=== PATIENT | female | born 1955 | race Caucasian/White ===

== ENCOUNTER 2020-05-16 12:02 | Inpatient (IN) | payer MEDICARE, BC ==
[2020-05-16] MEDS ORDERED: KETOROLAC 15 MG/ML 1 ML VIAL IVP STA (12:24)
[2020-05-16] MEDS ORDERED: SODIUM CHLORIDE 0.9% 1,000 ML IV STA (12:24)
--- NOTE | 2020-05-16 12:32 | ED ---
General Adult HPI - General Chief complaint: Urogenital Stated complaint: Fever,Blood in Urine Time Seen by Provider: 05/16/20 12:17 Source: patient, RN notes reviewed, old records reviewed Mode of arrival: ambulatory Limitations: no limitations - History of Present Illness Initial comments: 64-year-old female presenting for evaluation of fever, chills, dysuria or urinary frequency and left flank pain. Patient's symptoms have been going for the past 2 days. She is otherwise quite healthy. She denies vomiting but has had a very poor appetite. She's had fever measuring up to 102. She's had urinary incontinence and urinary frequency. And severe left flank pain. - Related Data Allergies Allergy/AdvReac Type Severity Reaction Status Date / Time bee venom protein (honey bee) Allergy Rash/Hives Verified 05/16/20 12:14 cephalexin [From Keflex] Allergy Anaphylaxis Verified 05/16/20 12:14 Penicillins Allergy Rash/Hives Verified 05/16/20 12:14 Sulfa (Sulfonamide Allergy Rash/Hives Verified 05/16/20 12:14 Antibiotics) Review of Systems ROS Statement: Those systems with pertinent positive or pertinent negative responses have been documented in the HPI. ROS Other: All systems not noted in ROS Statement are negative. Past Medical History Past Medical History: Asthma, GERD/Reflux Additional Past Medical History / Comment(s): arthrits, ibs, sepis, rds, gravees, scohisis neuropthy, History of Any Multi-Drug Resistant Organisms: None Reported Past Surgical History: Section, Orthopedic Surgery, Tubal Ligation Additional Past Surgical History / Comment(s): tea Past Psychological History: No Psychological Hx Reported Smoking Status: Former smoker Past Alcohol Use History: None Reported Past Drug Use History: None Reported General Exam Limitations: no limitations General appearance: alert, in no apparent distress Head exam: Present: atraumatic, normocephalic Eye exam: Present: normal appearance. Absent: PERRL, EOMI ENT exam: Present: normal exam Neck exam: Present: normal inspection. Absent: tenderness, meningismus Respiratory exam: Present: normal lung sounds bilaterally. Absent: respiratory distress, wheezes Cardiovascular Exam: Present: regular rate, normal rhythm GI/Abdominal exam: Present: soft. Absent: distended, tenderness Extremities exam: Present: normal inspection, normal capillary refill. Absent: pedal edema Back exam: Present: CVA tenderness (L) Neurological exam: Present: alert, oriented X3, CN II-XII intact. Absent: motor sensory deficit Psychiatric exam: Present: normal affect, normal mood Skin exam: Present: warm, dry, intact. Absent: cyanosis, diaphoretic Course Vital Signs 05/16/20 12:08 Temperature 98.8 F Pulse Rate 92 Respiratory 20 Rate Blood Pressure 182/108 O2 Sat by Pulse 98 Oximetry Medical Decision Making - Medical Decision Making 64-year-old female with flank pain, fever, dysuria. Patient does have CVA tenderness. Workup was initiated, consistent with a pyelonephritis. She has significantly infected urine, culture pending of both urine and blood patches white blood cell count of 20,000. CT showing inflammation in the left kidney consistent with exam. Patient will be admitted for IV antibiotics. She does have significant antibiotic ALLERGIES including anaphylaxis. She has been started on Levaquin awaiting culture results. Case is discussed with Dr. Camara who will admit the patient - Lab Data Result diagrams: 05/16/20 12:31 05/16/20 12:31 Lab Results 05/16/20 05/16/20 05/16/20 Range/Units 12:31 12:31 12:31 WBC 19.1 H (3.8-10.6) k/uL RBC 4.93 (3.80-5.40) m/uL Hgb 15.4 (11.4-16.0) gm/dL Hct 46.3 H (34.0-46.0) % MCV 93.9 (80.0-100.0) fL MCH 31.2 (25.0-35.0) pg MCHC 33.2 (31.0-37.0) g/dL RDW 13.2 (11.5-15.5) % Plt Count 277 (150-450) k/uL Neutrophils % 79 % Lymphocytes % 15 % Monocytes % 4 % Eosinophils % 1 % Basophils % 1 % Neutrophils # 15.0 H (1.3-7.7) k/uL Lymphocytes # 2.8 (1.0-4.8) k/uL Monocytes # 0.8 (0-1.0) k/uL Eosinophils # 0.1 (0-0.7) k/uL Basophils # 0.1 (0-0.2) k/uL Sodium 137 (137-145) mmol/L Potassium 4.1 (3.5-5.1) mmol/L Chloride 103 (98-107) mmol/L Carbon Dioxide 25 (22-30) mmol/L Anion Gap 9 mmol/L BUN 9 (7-17) mg/dL Creatinine 0.80 (0.52-1.04) mg/dL Est GFR (CKD-EPI)AfAm 90 (>60 ml/min/1.73 sqM) Est GFR (CKD-EPI)NonAf 78 (>60 ml/min/1.73 sqM) Glucose 114 H (74-99) mg/dL Plasma Lactic Acid Raj (0.7-2.0) mmol/L Calcium 9.6 (8.4-10.2) mg/dL Total Bilirubin 1.0 (0.2-1.3) mg/dL AST 26 (14-36) U/L ALT 10 (4-34) U/L Alkaline Phosphatase 68 (38-126) U/L Total Protein 8.3 H (6.3-8.2) g/dL Albumin 4.9 (3.5-5.0) g/dL Amylase 47 (30-110) U/L Lipase 74 (23-300) U/L Urine Color Yellow Urine Appearance Turbid H (Clear) Urine pH 6.0 (5.0-8.0) Ur Specific Eagle 1.015 (1.001-1.035) Urine Protein 2+ H (Negative) Urine Glucose (UA) Negative (Negative) Urine Ketones Negative (Negative) Urine Blood Large H (Negative) Urine Nitrite Positive H (Negative) Urine Bilirubin Negative (Negative) Urine Urobilinogen <2.0 (<2.0) mg/dL Ur Leukocyte Esterase Large H (Negative) Urine RBC 139 H (0-5) /hpf Urine WBC >182 H (0-5) /hpf Urine WBC Clumps Many H (None) /hpf Ur Squamous Epith Cells 1 (0-4) /hpf Urine Bacteria Rare H (None) /hpf Urine Mucus Rare H (None) /hpf 05/16/20 Range/Units 12:31 WBC (3.8-10.6) k/uL RBC (3.80-5.40) m/uL Hgb (11.4-16.0) gm/dL Hct (34.0-46.0) % MCV (80.0-100.0) fL MCH (25.0-35.0) pg MCHC (31.0-37.0) g/dL RDW (11.5-15.5) % Plt Count (150-450) k/uL Neutrophils % % Lymphocytes % % Monocytes % % Eosinophils % % Basophils % % Neutrophils # (1.3-7.7) k/uL Lymphocytes # (1.0-4.8) k/uL Monocytes # (0-1.0) k/uL Eosinophils # (0-0.7) k/uL Basophils # (0-0.2) k/uL Sodium (137-145) mmol/L Potassium (3.5-5.1) mmol/L Chloride (98-107) mmol/L Carbon Dioxide (22-30) mmol/L Anion Gap mmol/L BUN (7-17) mg/dL Creatinine (0.52-1.04) mg/dL Est GFR (CKD-EPI)AfAm (>60 ml/min/1.73 sqM) Est GFR (CKD-EPI)NonAf (>60 ml/min/1.73 sqM) Glucose (74-99) mg/dL Plasma Lactic Acid Raj 2.0 (0.7-2.0) mmol/L Calcium (8.4-10.2) mg/dL Total Bilirubin (0.2-1.3) mg/dL AST (14-36) U/L ALT (4-34) U/L Alkaline Phosphatase (38-126) U/L Total Protein (6.3-8.2) g/dL Albumin (3.5-5.0) g/dL Amylase (30-110) U/L Lipase (23-300) U/L Urine Color Urine Appearance (Clear) Urine pH (5.0-8.0) Ur Specific Eagle (1.001-1.035) Urine Protein (Negative) Urine Glucose (UA) (Negative) Urine Ketones (Negative) Urine Blood (Negative) Urine Nitrite (Negative) Urine Bilirubin (Negative) Urine Urobilinogen (<2.0) mg/dL Ur Leukocyte Esterase (Negative) Urine RBC (0-5) /hpf Urine WBC (0-5) /hpf Urine WBC Clumps (None) /hpf Ur Squamous Epith Cells (0-4) /hpf Urine Bacteria (None) /hpf Urine Mucus (None) /hpf Disposition Clinical Impression: Pyelonephritis Disposition: ADMITTED IP TO THIS HOSP Condition: Stable Is patient prescribed a controlled substance at d/c from ED?: No Referrals: Ray Camara MD [Primary Care Provider] - 1-2 days Decision to Admit Reason: Admit from EC Decision Date: 05/16/20 Decision Time: 14:14
--- NOTE | 2020-05-16 13:02 | XR ---
EXAMINATION TYPE: XR KUB DATE OF EXAM: 05/16/2020 12:58 PM CLINICAL HISTORY: Abdominal pain and hematuria. TECHNIQUE: Two Upright KUB images of the abdomen are obtained. COMPARISON: None. FINDINGS: Scattered gas is seen in non-distended stomach and small bowel loops. Gas and fecal materia l is seen in non-distended colon. There is S-shaped scoliosis. Lung bases are clear. No suspicious ca lcification or pneumoperitoneum. IMPRESSION: Overall nonobstructive bowel gas pattern. No definitive nephrolithiasis.
[2020-05-16 13:15] LABS: Basophils # (A) 0.1 k/uL (0-0.2); Basophils % (A) 1 %; Eosinophils # (A) 0.1 k/uL (0-0.7); Eosinophils % (A) 1 %; HCT 46.3 % (34.0-46.0); HGB 15.4 gm/dL (11.4-16.0); Lymphocytes # (A) 2.8 k/uL (1.0-4.8); Lymphocytes % (A) 15 %; MCH 31.2 pg (25.0-35.0); MCHC 33.2 g/dL (31.0-37.0); MCV 93.9 fL (80.0-100.0); Mean Platelet Volume 7.1; Monocytes # (A) 0.8 k/uL (0-1.0); Monocytes % (A) 4 %; Neutrophils % (A) 79 %; Platelet Count 277 k/uL (150-450); RBC 4.93 m/uL (3.80-5.40); RDW 13.2 % (11.5-15.5); WBC 19.1 k/uL (3.8-10.6)
[2020-05-16 13:21] LABS: Albumin 4.9 g/dL (3.5-5.0); Calcium 9.6 mg/dL (8.4-10.2); Potassium 4.1 mmol/L (3.5-5.1); Total Protein 8.3 g/dL (6.3-8.2)
--- NOTE | 2020-05-16 13:41 | CT ---
EXAMINATION TYPE: CT abdomen pelvis wo con DATE OF EXAM: 05/16/2020 HISTORY: Left flank pain, fever and hematuria CT DLP: 762.7 mGycm. Automated Exposure Control for Dose Reduction was Utilized. TECHNIQUE: CT scan of the abdomen and pelvis is performed without oral or IV contrast. COMPARISON: Abdominal x-ray earlier today FINDINGS: Within the limitations of a non-contrast study, the following observations are made. LUNG BASES: Right breast inferiorly show slightly more nodular soft tissue suspected fibroglandular t issue. Finding should be correlated with annual mammogram. LIVER/GB: Liver is heterogeneously hypodense relative to spleen consistent with mild diffuse fatty in filtration. PANCREAS: No significant abnormality is seen. SPLEEN: No significant abnormality is seen. ADRENALS: No significant abnormality is seen. KIDNEYS: No renal stones or hydronephrosis is present bilaterally. Asymmetric enlargement of left kid clau versus right kidney. Mild right perinephric and superior ureter fat stranding, nonspecific findin g. BOWEL: Suboptimal evaluation of bowel without enteric contrast. No suspicious small or large bowel di latation. Low-lying cecum into the right pelvis. Prominent diverticulosis in the sigmoid colon. Perha ps mild fat stranding left pelvis axial image 70 proximal to mid sigmoid colon. No free air. No well- formed fluid collection or abscess. GENITAL ORGANS: Anteverted uterus. LYMPH NODES: No greater than 1cm abdominal or pelvic lymph nodes are appreciated. OSSEOUS STRUCTURES: No significant abnormality is seen. OTHER: No significant additional abnormality is seen. IMPRESSION: 1. Prominent sigmoid colonic diverticulosis, suspect mild uncomplicated acute diverticulitis proximal to mid sigmoid colon level left pelvis. 2. No renal stones or hydronephrosis present bilaterally. Asymmetric enlarged left kidney with asymme tric left perinephric and proximal periureteric fat stranding. Nonspecific finding, Underlying infect ion cannot be excluded.
[2020-05-16] MEDS ORDERED: LEVOFLOXACIN 500MG-D5W PMX 500 MG in DEXTROSE/WATER 1 100ML.BAG IVPB STA (13:43)
[2020-05-16 14:04] LABS: Color,Urine Yellow
[2020-05-16 14:05] LABS: Appearance,Urine Turbid (Clear); Bilirubin,Urine Negative (Negative); Blood,Urine Large (Negative); Glucose,Urine (UA) Negative (Negative); Ketones,Urine Negative (Negative); Protein,Urine 2+ (Negative); Specific Gravity,Urine 1.015 (1.001-1.035); Urobilinogen,Urine <2.0 mg/dL (<2.0)
[2020-05-16 14:06] LABS: Leukocyte Esterase,Urine Large (Negative); Nitrite,Urine Positive (Negative); RBC,Urine 139 /hpf (0-5); Squamous Epithelial Cell,Urine 1 /hpf (0-4); WBC,Urine >182 /hpf (0-5)
[2020-05-16 14:07] LABS: Bacteria,Urine Rare /hpf; Mucus,Urine Rare /hpf
[2020-05-16] MEDS ORDERED: IBUPROFEN 400 MG TAB PO PRN (14:11)
[2020-05-16] MEDS ORDERED: NALOXONE 0.4 MG/ML 1 ML VIAL IV PRN (14:11)
--- NOTE | 2020-05-16 14:29 | P.HPIM ---
History of Present Illness H&P Date: 05/16/20 Elinor Rosa, is a 64-year-old female well known to my practice who presented to [facility] emergency room with a chief complaints of fever, chills, and severe left sided lower back pain and left flank pain, patient was evaluated in the emergency room preliminary diagnosis was acute pyelonephritis she was started on IV antibiotic Levaquin and was admitted to medical floor, patient has multiple antibiotic ALLERGIES, infectious disease consultation was requested. Patient has a known history of hypertension, hypothyroidism, asthma, hyperlipidemia, peripheral neuropathy, and gastroesophageal reflux disease. Patient had an episode of severe sepsis requiring 2 weeks hospitalization in 2011, she also has history of arthritis and scoliosis. On review of systems patient is alert and oriented 3 in no apparent distress she is complaining of fever or chills generalized weakness and left sided flank pain otherwise she denies any complaints there is no headache or dizziness no chest pain no shortness of breath no cough no nausea or vomiting no abdominal pain no diarrhea no blood in the stools. She is complaining of burning was urination and frequency with urination and pinkish colored urine for the last 2 days. Past Medical History Past Medical History: Asthma, GERD/Reflux Additional Past Medical History / Comment(s): arthrits, ibs, sepis, rds, gravees, scohisis neuropthy, History of Any Multi-Drug Resistant Organisms: None Reported Past Surgical History: Section, Orthopedic Surgery, Tubal Ligation Additional Past Surgical History / Comment(s): tea Past Psychological History: No Psychological Hx Reported Smoking Status: Former smoker Past Alcohol Use History: None Reported Past Drug Use History: None Reported Medications and Allergies Allergies Allergy/AdvReac Type Severity Reaction Status Date / Time bee venom protein (honey bee) Allergy Rash/Hives Verified 05/16/20 12:14 cephalexin [From Keflex] Allergy Anaphylaxis Verified 05/16/20 12:14 Penicillins Allergy Rash/Hives Verified 05/16/20 12:14 Sulfa (Sulfonamide Allergy Rash/Hives Verified 05/16/20 12:14 Antibiotics) Physical Exam Vitals: Vital Signs Temp Pulse Resp BP Pulse Ox 05/16/20 12:08 98.8 F 92 20 182/108 98 Intake and Output 05/15/20 05/16/20 05/16/20 22:59 06:59 14:59 Other: Weight 83.915 kg In general patient is alert and oriented 3 in no apparent distress HEENT head normocephalic and atraumatic Neck is supple no JVD no goiter no lymphadenopathy Chest exam reveals clear respiratory sounds no crackles no wheezing Cardiac exam reveals regular heart sounds S1 and S2 no gallops no murmurs Abdomen is soft with left sided tenderness mostly in the left lower quadrant no organomegaly no palpable masses with normal bowel sounds Extremity exam reveals no edema no cyanosis or clubbing Neurological examination reveals no gross focal deficit Results CBC & Chem 7: 05/16/20 12:31 05/16/20 12:31 Labs: Abnormal Lab Results - Last 24 Hours (Table) 05/16/20 05/16/20 05/16/20 Range/Units 12:31 12:31 12:31 WBC 19.1 H (3.8-10.6) k/uL Hct 46.3 H (34.0-46.0) % Neutrophils # 15.0 H (1.3-7.7) k/uL Glucose 114 H (74-99) mg/dL Total Protein 8.3 H (6.3-8.2) g/dL Urine Appearance Turbid H (Clear) Urine Protein 2+ H (Negative) Urine Blood Large H (Negative) Urine Nitrite Positive H (Negative) Ur Leukocyte Esterase Large H (Negative) Urine RBC 139 H (0-5) /hpf Urine WBC >182 H (0-5) /hpf Urine WBC Clumps Many H (None) /hpf Urine Bacteria Rare H (None) /hpf Urine Mucus Rare H (None) /hpf Assessment and Plan Plan: 1. Acute pyelonephritis, with sepsis 2. Diverticulosis could not rule acute diverticulitis on computed tomography scan 3. Underlying history of hypertension 4. Underlying history of hyperlipidemia 5. Underlying history of hypothyroidism 6. Underlying history of asthma 7. Underlying history of gastroesophageal reflux disease 8. Underlying history of osteoarthritis At this time patient is admitted to medical floor she was started on IV Levaquin Infectious disease consultation was requested Will follow closely
[2020-05-16] MEDS: SODIUM CHLORIDE 0.9% 1,000 ML IV SCH ×2 (17:12→22:35)
[2020-05-16] MEDS: ACETAMINOPHEN TAB 325 MG TAB PO PRN (19:48)
[2020-05-17] MEDS: SODIUM CHLORIDE 0.9% 1,000 ML IV SCH ×3 (05:19→13:56)
[2020-05-17 06:28] LABS: Basophils % (A) 0 %; Eosinophils # (A) 0.1 k/uL (0-0.7); Eosinophils % (A) 1 %; HCT 39.6 % (34.0-46.0); HGB 12.8 gm/dL (11.4-16.0); Lymphocytes # (A) 2.6 k/uL (1.0-4.8); Lymphocytes % (A) 26 %; MCH 30.7 pg (25.0-35.0); MCHC 32.3 g/dL (31.0-37.0); MCV 95.1 fL (80.0-100.0); Mean Platelet Volume 7.1; Monocytes # (A) 0.5 k/uL (0-1.0); Monocytes % (A) 5 %; Neutrophils # (A) 6.6 k/uL (1.3-7.7); Neutrophils % (A) 66 %; Platelet Count 231 k/uL (150-450); RBC 4.16 m/uL (3.80-5.40); RDW 13.6 % (11.5-15.5)
[2020-05-17] MEDS ORDERED: GABAPENTIN 400 MG CAP PO PRN (08:15)
[2020-05-17] MEDS ORDERED: ACETAMINOPHEN TAB 500 MG TAB PO PRN (08:15)
[2020-05-17] MEDS ORDERED: ALBUTEROL NEBULIZED 2.5 MG/3 ML INHALATION PRN (08:15)
[2020-05-17] MEDS: LEVOTHYROXINE 125 MCG TAB PO SCH (08:30)
[2020-05-17] MEDS: ACETAMINOPHEN TAB 325 MG TAB PO PRN ×2 (08:30→17:59)
[2020-05-17 10:06] LABS: African American GFR (CKD) 89.7 (60.0-200.0); Albumin 3.8 g/dL (3.80-4.90); Albumin/Globulin Ratio 2.11 (1.60-3.17); Calcium 8.7 mg/dL (8.7-10.3); Globulin 1.8 g/dL (1.6-3.3); Non-African American GFR(CKD) 77.4 (60.0-200.0); Potassium 4.3 mmol/L (3.5-5.5); Total Bilirubin 0.5 mg/dL (0.2-1.2); Total Protein 5.6 g/dL (6.2-8.2)
--- NOTE | 2020-05-17 10:41 | P.PN ---
Subjective Progress Note Date: 05/17/20 Elinor Rosa, is a 64-year-old female well known to my practice who presented to [facility] emergency room with a chief complaints of fever, chills, and severe left sided lower back pain and left flank pain, patient was evaluated in the emergency room preliminary diagnosis was acute pyelonephritis she was started on IV antibiotic Levaquin and was admitted to medical floor, patient has multiple antibiotic ALLERGIES, infectious disease consultation was requested. Patient has a known history of hypertension, hypothyroidism, asthma, hyperlipidemia, peripheral neuropathy, and gastroesophageal reflux disease. Patient had an episode of severe sepsis requiring 2 weeks hospitalization in 2011, she also has history of arthritis and scoliosis. On review of systems patient is alert and oriented 3 in no apparent distress she is complaining of fever or chills generalized weakness and left sided flank pain otherwise she denies any complaints there is no headache or dizziness no chest pain no shortness of breath no cough no nausea or vomiting no abdominal pain no diarrhea no blood in the stools. She is complaining of burning was urination and frequency with urination and pinkish colored urine for the last 2 days. On 05/17/2020 patient was seen and examined on the medical floor she is alert and oriented 3 in no apparent distress , she is still complaining of left flank pain and frequency with urination there is no fever or chills no headache or dizziness no chest pain no shortness of breath no cough no nausea or vomiting no abdominal pain no diarrhea no blood in the stools no burning was urination no urgency and no hematuria, there is no change in vision speech or gait no numbness or weakness in any of the extremities Objective - Vital Signs Vital signs: Vital Signs Temp 98.0 F 05/17/20 04:04 Pulse 75 05/17/20 04:04 Resp 17 05/17/20 04:04 BP 133/81 05/17/20 04:04 Pulse Ox 95 05/17/20 04:04 Intake & Output 05/16/20 05/17/20 05/17/20 18:59 06:59 18:59 Intake Total 540 Balance 540 Weight 83.915 kg Intake: Oral 540 Other: Voiding Method Toilet # Voids 1 2 - Exam In general patient is alert and oriented 3 in no apparent distress HEENT head normocephalic and atraumatic Neck is supple no JVD no goiter no lymphadenopathy Chest exam reveals clear respiratory sounds no crackles no wheezing Cardiac exam reveals regular heart sounds S1 and S2 no gallops no murmurs Abdomen is soft with left sided tenderness mostly in the left lower quadrant no organomegaly no palpable masses with normal bowel sounds Extremity exam reveals no edema no cyanosis or clubbing Neurological examination reveals no gross focal deficit - Labs CBC & Chem 7: 05/17/20 05:37 05/17/20 05:37 Labs: Abnormal Lab Results - Last 24 Hours (Table) 05/16/20 05/16/20 05/16/20 Range/Units 12:31 12:31 12:31 WBC 19.1 H (3.8-10.6) k/uL Hct 46.3 H (34.0-46.0) % Neutrophils # 15.0 H (1.3-7.7) k/uL Glucose 114 H (74-99) mg/dL Total Protein 8.3 H (6.3-8.2) g/dL Urine Appearance Turbid H (Clear) Urine Protein 2+ H (Negative) Urine Blood Large H (Negative) Urine Nitrite Positive H (Negative) Ur Leukocyte Esterase Large H (Negative) Urine RBC 139 H (0-5) /hpf Urine WBC >182 H (0-5) /hpf Urine WBC Clumps Many H (None) /hpf Urine Bacteria Rare H (None) /hpf Urine Mucus Rare H (None) /hpf Microbiology - Last 24 Hours (Table) 05/16/20 12:31 Urine Culture - Preliminary Urine,Voided Assessment and Plan Plan: 1. Acute pyelonephritis, with sepsis, continue IV Levaquin 2. Diverticulosis could not rule acute diverticulitis on computed tomography scan 3. Underlying history of hypertension 4. Underlying history of hyperlipidemia 5. Underlying history of hypothyroidism 6. Underlying history of asthma 7. Underlying history of gastroesophageal reflux disease 8. Underlying history of osteoarthritis At this time patient is admitted to medical floor she was started on IV Levaquin Today patient is improving white blood count is down from 19.1-10.0 Urine culture is still pending Infectious disease consultation was requested Will follow closely
[2020-05-17] MEDS: LEVOFLOXACIN 750 MG TAB PO SCH (13:56)
[2020-05-17 19:43] VITALS: RESP 17
--- NOTE | 2020-05-17 20:38 | P.CONS ---
History of Present Illness - Reason for Consult Consult date: 05/17/20 Left-sided pyelonephritis Requesting physician: Ray Camara - Chief Complaint Left flank pain dark urine and burning x 2 days - History of Present Illness Patient is 64-year-old female presenting to the ER yesterday for evaluation of urinary burning or frequency, dark urine and left flank pain that has been getting worse for the last 2 days before presentation hospital, patient described the pain to be more of a sharp nature intensity about 8 out of 10 and no radiation associated nausea but no vomiting, patient did have a fever of 102F, patient has been taking Tylenol and increasing fluid intake however symptoms do not improve and she presented to [facility] ER patient was evaluated by the physician on arrival to the ER patient did have a white count of 19,000 patient had did have a KUB x-ray did not show any nephrolithiasis, patient did have CT abdomen and pelvis which did shows left sided perinephric stranding and mild enlarged kidney patient was given a dose of Levaquin has been admitted to the hospital infectious disease was consulted for further management of her antibiotic therapy because of her multiple antibiotic ALLERGY Review of Systems Positive point has been mentioned in the HPI rest of the systems are negative Past Medical History Past Medical History: Asthma, GERD/Reflux Additional Past Medical History / Comment(s): arthrits, ibs, sepis, rds, gravees, scohisis neuropthy, History of Any Multi-Drug Resistant Organisms: None Reported Past Surgical History: Section, Orthopedic Surgery, Tubal Ligation Additional Past Surgical History / Comment(s): tea Past Psychological History: No Psychological Hx Reported Smoking Status: Former smoker Past Alcohol Use History: None Reported Past Drug Use History: None Reported Medications and Allergies Home Medications Medication Instructions Recorded Confirmed Type Acetaminophen [Tylenol] 1,000 mg PO Q8H PRN 05/16/20 05/16/20 History Albuterol Sulfate [Albuterol 2 puff PO RT-Q6H PRN 05/16/20 05/16/20 History Sulfate Hfa] Aspirin EC [Ecotrin Low Dose] 81 mg PO HS 05/16/20 05/16/20 History Ergocalciferol (Vitamin D2) 50,000 unit PO TU 05/16/20 05/16/20 History [Drisdol] Gabapentin [Neurontin] 400 mg PO DAILY PRN 05/16/20 05/16/20 History Gabapentin [Neurontin] 800 mg PO HS 05/16/20 05/16/20 History Levothyroxine Sodium [Synthroid] 125 mcg PO DAILY 05/16/20 05/16/20 History Montelukast Sodium [Singulair] 10 mg PO HS 05/16/20 05/16/20 History Niacin [Niacin ER] 500 mg PO HS 05/16/20 05/16/20 History Pantoprazole [Protonix] 40 mg PO HS 05/16/20 05/16/20 History Allergies Allergy/AdvReac Type Severity Reaction Status Date / Time bee venom protein (honey bee) Allergy Rash/Hives Verified 05/16/20 14:36 cephalexin [From Keflex] Allergy Anaphylaxis Verified 05/16/20 14:36 Penicillins Allergy Rash/Hives Verified 05/16/20 14:36 Sulfa (Sulfonamide Allergy Rash/Hives Verified 05/16/20 14:36 Antibiotics) Physical Exam Vitals: Vital Signs Temp Pulse Resp BP BP Pulse Ox 05/17/20 07:00 98.4 F 77 20 131/76 96 05/17/20 04:04 98.0 F 75 17 133/81 95 05/17/20 03:00 17 05/17/20 00:05 17 05/16/20 19:34 98.0 F 71 17 145/86 97 05/16/20 19:00 17 05/16/20 15:00 98.0 F 77 16 145/87 93 L 05/16/20 14:36 149/87 Intake and Output 05/16/20 05/17/20 05/17/20 22:59 06:59 14:59 Other: Voiding Method Toilet # Voids 2 2 3 GENERAL DESCRIPTION: An elderly female lying in bed, no distress. No tachypnea or accessory muscle of respiration use. HEENT: Shows Pallor , no scleral icterus. Oral mucous membrane is dry. No pharyngeal erythema or thrush NECK: Trachea central, no thyromegaly. LUNGS: Unlabored breathing. Clear to auscultation anteriorly. No wheeze or crackle. HEART: S1, S2, regular rate and rhythm. No loud murmur ABDOMEN: Soft, left flank tenderness , no guarding or rigidity, no organomegaly EXTREMITIES: No edema of feet. SKIN: No rash, no masses palpable. NEUROLOGICAL: The patient is awake, alert, oriented x3, mood and affect normal. Results CBC & Chem 7: 05/17/20 05:37 05/17/20 05:37 Labs: Abnormal Lab Results - Last 24 Hours (Table) 05/16/20 05/16/20 05/16/20 Range/Units 12:31 12:31 12:31 WBC 19.1 H (3.8-10.6) k/uL Hct 46.3 H (34.0-46.0) % Neutrophils # 15.0 H (1.3-7.7) k/uL Chloride (96-109) mmol/L Glucose 114 H (74-99) mg/dL Plasma Lactic Acid Raj (0.7-2.0) mmol/L Total Protein 8.3 H (6.3-8.2) g/dL Urine Appearance Turbid H (Clear) Urine Protein 2+ H (Negative) Urine Blood Large H (Negative) Urine Nitrite Positive H (Negative) Ur Leukocyte Esterase Large H (Negative) Urine RBC 139 H (0-5) /hpf Urine WBC >182 H (0-5) /hpf Urine WBC Clumps Many H (None) /hpf Urine Bacteria Rare H (None) /hpf Urine Mucus Rare H (None) /hpf 05/17/20 05/17/20 Range/Units 05:37 11:06 WBC (3.8-10.6) k/uL Hct (34.0-46.0) % Neutrophils # (1.3-7.7) k/uL Chloride 110 H (96-109) mmol/L Glucose (74-99) mg/dL Plasma Lactic Acid Raj 0.5 L (0.7-2.0) mmol/L Total Protein 5.6 L (6.3-8.2) g/dL Urine Appearance (Clear) Urine Protein (Negative) Urine Blood (Negative) Urine Nitrite (Negative) Ur Leukocyte Esterase (Negative) Urine RBC (0-5) /hpf Urine WBC (0-5) /hpf Urine WBC Clumps (None) /hpf Urine Bacteria (None) /hpf Urine Mucus (None) /hpf Microbiology - Last 24 Hours (Table) 05/16/20 12:31 Urine Culture - Preliminary Urine,Voided Assessment and Plan Assessment: 1-patient presented to hospital with left flank pain Urinary burning frequency dark urine with significant positive UA and elevated white count likely left- sided pyelonephritis 2- Patient with multiple antibiotic ALLERGIES that would limit the number of antibiotic safe to use (1) Allergy to multiple antibiotics Current Visit: Yes Status: Acute Code(s): Z88.1 - ALLERGY STATUS TO OTHER ANTIBIOTIC AGENTS STATUS SNOMED Code(s): 059945008 (2) Pyelonephritis Current Visit: Yes Status: Acute Code(s): N12 - TUBULO-INTERSTITIAL NEPHRITIS, NOT SPCF ACUTE OR CHRONIC SNOMED Code(s): 72483720 Plan: 1- Levaquin 750 mg by mouth daily 2- gentle IV fluid We will follow on clinical condition and cultures to further adjust medication if needed Thank you for this consultation will follow this patient with you Time with Patient: Greater than 30
[2020-05-17] MEDS ORDERED: ASPIRIN 81 MG PO SCH (21:00)
[2020-05-17] MEDS ORDERED: GABAPENTIN 400 MG CAP PO SCH (21:00)
[2020-05-17] MEDS ORDERED: PANTOPRAZOLE 40 MG TABLET PO SCH (21:00)
[2020-05-17] MEDS ORDERED: NIACIN TR 500 MG CAPLET PO SCH (21:00)
[2020-05-17] MEDS ORDERED: MONTELUKAST 10 MG TAB PO SCH (21:00)
[2020-05-18 05:01] LABS: Basophils % (A) 0 %; Eosinophils # (A) 0.2 k/uL (0-0.7); Eosinophils % (A) 3 %; HCT 37.2 % (34.0-46.0); HGB 12.4 gm/dL (11.4-16.0); Lymphocytes # (A) 2.6 k/uL (1.0-4.8); Lymphocytes % (A) 35 %; MCH 31.2 pg (25.0-35.0); MCHC 33.2 g/dL (31.0-37.0); MCV 93.9 fL (80.0-100.0); Monocytes # (A) 0.3 k/uL (0-1.0); Monocytes % (A) 4 %; Neutrophils # (A) 4.3 k/uL (1.3-7.7); Neutrophils % (A) 57 %; Platelet Count 197 k/uL (150-450); RBC 3.96 m/uL (3.80-5.40); RDW 13.6 % (11.5-15.5); WBC 7.5 k/uL (3.8-10.6)
[2020-05-18] MEDS: LEVOTHYROXINE 125 MCG TAB PO SCH (06:06)
[2020-05-18] MEDS: SODIUM CHLORIDE 0.9% 1,000 ML IV SCH (06:06)
[2020-05-18] MEDS: ACETAMINOPHEN TAB 325 MG TAB PO PRN (06:08)
[2020-05-18] MEDS: LEVOFLOXACIN 750 MG TAB PO SCH (07:41)
[2020-05-18 08:00] VITALS: BP 156/92; PULSE 64; TEMP 97.7
[2020-05-18] MEDS ORDERED: NYSTATIN 100,000 UNIT/ML SUSP 500,000 UNIT/5 ML CUP PO SCH (09:15)
[2020-05-18] MEDS ORDERED: NYSTATIN 100,000UNIT/GM CREAM 30 GM TUBE TOPICAL SCH (09:15)
[2020-05-18 10:07] LABS: African American GFR (CKD) 89.7 (60.0-200.0); Albumin 3.7 g/dL (3.80-4.90); Albumin/Globulin Ratio 2.06 (1.60-3.17); Anion Gap 4.7 mmol/L (4.00-12.00); Calcium 8.6 mg/dL (8.7-10.3); Carbon Dioxide 27.3 mmol/L (21.6-31.8); Globulin 1.8 g/dL (1.6-3.3); Non-African American GFR(CKD) 77.4 (60.0-200.0); Total Bilirubin 0.4 mg/dL (0.2-1.2); Total Protein 5.5 g/dL (6.2-8.2)
--- NOTE | 2020-05-18 13:27 | P.DS ---
Providers Date of admission: 05/16/20 14:11 Expected date of discharge: 05/18/20 Attending physician: Ray Camara Consults: 05/16/20 14:12 Consult Physician Routine Consulting Provider: Brooke Santiago Consult Reason/Comments: Pyelonephritis Do you want consulting provider notified?: Yes Primary care physician: Ray Camara [facility] Course: Diagnoses on discharge: 1. Acute pyelonephritis, with sepsis 2. Diverticulosis could not rule acute diverticulitis on computed tomography scan 3. Underlying history of hypertension 4. Underlying history of hyperlipidemia 5. Underlying history of hypothyroidism 6. Underlying history of asthma 7. Underlying history of gastroesophageal reflux disease 8. Underlying history of osteoarthritis 9. Oral candidiasis Hospital course: Elinor Rosa, is a 64-year-old female well known to my practice who presented to [facility] emergency room with a chief complaints of fever, chills, and severe left sided lower back pain and left flank pain, patient was evaluated in the emergency room preliminary diagnosis was acute pyelonephritis she was started on IV antibiotic Levaquin and was admitted to medical floor, patient has multiple antibiotic ALLERGIES, infectious disease consultation was requested. Patient has a known history of hypertension, hypothyroidism, asthma, hyperlipidemia, peripheral neuropathy, and gastroesophageal reflux disease. Patient had an episode of severe sepsis requiring 2 weeks hospitalization in 2011, she also has history of arthritis and scoliosis. On review of systems patient is alert and oriented 3 in no apparent distress she is complaining of fever or chills generalized weakness and left sided flank pain otherwise she denies any complaints there is no headache or dizziness no chest pain no shortness of breath no cough no nausea or vomiting no abdominal pain no diarrhea no blood in the stools. She is complaining of burning was urination and frequency with urination and pinkish colored urine for the last 2 days. On 05/18/2020 patient was seen and examined on the medical floor she is alert and oriented in no distress she is feeling better there is no fever or chills no headache or dizziness no chest pain no shortness of breath no cough no nausea or vomiting no abdominal pain no diarrhea no blood in the stools no burning with urination no frequency or urgency and no hematuria. Patient is stable to be discharged home, she was given a prescription for Levaquin 750 mg 1 daily for [address] Santiago recommendation. She was also given a prescription for nystatin mouthwash and nystatin cream she will be followed in our office on Monday at 11:00 am Patient Condition at Discharge: Stable Plan - Discharge Summary Discharge Rx Participant: Yes New Discharge Prescriptions: New Levofloxacin [Levaquin] 750 mg PO DAILY 10 Days #10 tab Nystatin 100,000Unit/gm Cream [Mycostatin Cream] 1 applic TOPICAL BID applic Nystatin 100,000 Unit/ml Susp [Mycostatin Oral Susp] 500,000 unit PO QID ml Continue Pantoprazole [Protonix] 40 mg PO HS Niacin [Niacin ER] 500 mg PO HS Ergocalciferol (Vitamin D2) [Drisdol] 50,000 unit PO TU Albuterol Sulfate [Albuterol Sulfate Hfa] 2 puff PO RT-Q6H PRN PRN Reason: Shortness Of Breath Acetaminophen [Tylenol] 1,000 mg PO Q8H PRN PRN Reason: Pain Gabapentin [Neurontin] 800 mg PO HS Aspirin EC [Ecotrin Low Dose] 81 mg PO HS Montelukast Sodium [Singulair] 10 mg PO HS Levothyroxine Sodium [Synthroid] 125 mcg PO DAILY Gabapentin [Neurontin] 400 mg PO DAILY PRN PRN Reason: Pain Discharge Medication List Acetaminophen [Tylenol] 1,000 mg PO Q8H PRN 05/16/20 [History] Albuterol Sulfate [Albuterol Sulfate Hfa] 2 puff PO RT-Q6H PRN 05/16/20 [History] Aspirin EC [Ecotrin Low Dose] 81 mg PO HS 05/16/20 [History] Ergocalciferol (Vitamin D2) [Drisdol] 50,000 unit PO TU 05/16/20 [History] Gabapentin [Neurontin] 400 mg PO DAILY PRN 05/16/20 [History] Gabapentin [Neurontin] 800 mg PO HS 05/16/20 [History] Levothyroxine Sodium [Synthroid] 125 mcg PO DAILY 05/16/20 [History] Montelukast Sodium [Singulair] 10 mg PO HS 05/16/20 [History] Niacin [Niacin ER] 500 mg PO HS 05/16/20 [History] Pantoprazole [Protonix] 40 mg PO HS 05/16/20 [History] Levofloxacin [Levaquin] 750 mg PO DAILY 10 Days #10 tab 05/18/20 [Rx] Nystatin 100,000 Unit/ml Susp [Mycostatin Oral Susp] 500,000 unit PO QID ml 05/18/20 [Rx] Nystatin 100,000Unit/gm Cream [Mycostatin Cream] 1 applic TOPICAL BID applic 05/18/20 [Rx] Follow up Appointment(s)/Referral(s): Ray Camara MD [Primary Care Provider] - 05/22/20 11:00 am Patient Instructions/Handouts: Kidney Stones (DC)
--- NOTE | 2020-05-18 14:40 | PN ---
PROGRESS NOTE DATE OF SERVICE: 05/18/2020 REASON FOR FOLLOWUP: Gram-negative left-sided pyelonephritis. INTERVAL HISTORY: The patient is currently afebrile. Patient is breathing comfortably. Patient denies having any chest pain. No shortness of breath, no cough. No nausea, no vomiting. Left-sided flank pain has improved. No diarrhea, no nausea, denies any symptoms. PHYSICAL EXAMINATION: Blood pressure 156/92 with a pulse of 64, temperature 97.7. She is 97% on room air. General description is an elderly female up in the chair, in no distress. RESPIRATORY SYSTEM: Unlabored breathing, clear to auscultation anteriorly/ HEART: S1, S2. Regular rate and rhythm. ABDOMEN: Soft, no tenderness. LEFT LEG: Tenderness, slightly decreased. LABS: Hemoglobin is 12.4, white count 7.5. BUN of 12, creatinine 0.8. Urine showing gram- negative, blood culture negative. DIAGNOSTIC IMPRESSION AND PLAN: Patient with a left-sided pyelonephritis. Urine has been gram-negative and now has been finalized, though she clinically responded to Levaquin, she will to continue for another 10 days to finish a course of therapy for the pyelonephritis and close outpatient followup. Discussed with the admitting physician. JOSEPHL / IJN: [id number] /
[2020-05-19] MEDS ORDERED: ERGOCALCIFEROL 50,000 UNIT CAP PO SCH (09:00)
== END 2020-05-18 13:35 | disposition home or self-care (01) | DRG 872 ==
LOC: EC 12:02 → UNDOADMOB 14:11 → 4SSUR 14:11 → 1SOBS 14:11
PROVIDERS: ADMIT Internal Medicine; ATTEND Internal Medicine
DX: A41.59 Other Gram-negative sepsis (principal); B37.0 Candidal stomatitis; N10 Acute pyelonephritis; K57.32 Diverticulitis of large intestine without perforation or abscess without bleeding; E03.9 Hypothyroidism, unspecified; E78.5 Hyperlipidemia, unspecified; I10 Essential (primary) hypertension; K21.9 Gastro-esophageal reflux disease without esophagitis; M19.90 Unspecified osteoarthritis, unspecified site; M41.9 Scoliosis, unspecified; J45.909 Unspecified asthma, uncomplicated; Z79.890 Hormone replacement therapy; Z79.899 Other long term (current) drug therapy; Z87.891 Personal history of nicotine dependence; Z88.1 Allergy status to other antibiotic agents; Z86.19 Personal history of other infectious and parasitic diseases; Z98.891 History of uterine scar from previous surgery; Z98.51 Tubal ligation status; Z88.0 Allergy status to penicillin; Z88.2 Allergy status to sulfonamides; Z91.030 Bee allergy status
CPT/HCPCS: 36415; 74018; 74176; 80053; 81001; 82150; 83605; 83690; 85025; 87040; 87077; 87086; 87186; 96361; 96365; 96375; 99285

== ENCOUNTER → 2020-05-28 | Outpatient (CLI) | payer MEDICARE, BC ==
--- NOTE | 2020-05-28 08:54 | US ---
EXAMINATION TYPE: US kidneys/renal and bladder DATE OF EXAM: 05/28/2020 COMPARISON: CT 2019 CLINICAL HISTORY: R31.9 hematuria, M54.5 low back pain. Hematuria, left flank pain and fever/chills 2 weeks ago, follow up today EXAM MEASUREMENTS: Right Kidney: 11.6 x 5.1 x 4.7 cm Left Kidney: 11.9 x 5.1 x 4.9 cm Right Kidney: dilated renal pelvis Left Kidney: no hydronephrosis or masses seen Bladder: wnl Bilateral Jets seen: yes No nephrolithiasis is seen. No masses are identified. The urinary bladder is anechoic. Bilateral u reteral jets are seen. IMPRESSION: Mild right-sided hydronephrosis of uncertain etiology.
== END | disposition home or self-care (01) ==
LOC: RADUSWWP 08:08
PROVIDERS: ATTEND Internal Medicine
DX: N13.30 Unspecified hydronephrosis (principal)
CPT/HCPCS: 76770

== ENCOUNTER → 2020-10-30 | Outpatient (CLI) | payer MEDICARE, BC ==
--- NOTE | 2020-10-30 15:44 | US ---
EXAMINATION TYPE: US kidneys/renal and bladder DATE OF EXAM: 10/30/2020 COMPARISON: US, CT CLINICAL HISTORY: R31.9 Hematuria. EXAM MEASUREMENTS: Right Kidney: 11.8 x 6.3 x 4.1 cm Left Kidney: 12.2 x 6.3 x 4.6 cm Post Void Residual Volume: 38.9 mL Right Kidney: prominent right renal pelvis is noted = 1.1cm . This appears similar to 05/28/2020 Left Kidney: No hydronephrosis or masses seen Bladder: wnl Bilateral Jets seen: yes Normal Post Void Residual: yes IMPRESSION: 1. Mild prominence of the right renal pelvis. This could be an extrarenal pelvis. This is similar to 2019 2. Renal ultrasound is otherwise unremarkable.
== END ==
LOC: RADUSWWP 14:43
PROVIDERS: ATTEND Internal Medicine
DX: R31.9 Hematuria, unspecified (principal)
CPT/HCPCS: 76770

== ENCOUNTER → 2022-09-16 | Outpatient (CLI) | payer MEDICARE, BC ==
--- NOTE | 2022-09-18 21:13 | CT ---
EXAMINATION TYPE: CT soft tissue neck w con CT DLP: 443 mGycm, Automated exposure control for dose reduction was used. DATE OF EXAM: 09/16/2022 5:22 PM COMPARISON: None. CLINICAL INDICATION:Female, 67 years old with history of Z12.31 screening, R59.9 enlarged lymph node; , Lump on right side of neck. TECHNIQUE: Standard enhanced CT of the neck. Axial sections with coronal and sagittal reformats were obtained. Palpable marker place at the discretion of the patient. Contrast used:70cc mL of Isovue 300 with IV Contrast, Oral contrast used: none. FINDINGS: Brain: Visualized portions are grossly unremarkable. Orbits: Unremarkable Sinuses: Grossly unremarkable. Spaces of the neck: Clear and symmetric. Palpable marker is present with no evidence for organizing f luid collection or mass. Tiny 3 mm lymph node is present in the deep subcutaneous tissues. No additio nal finding to correlate with palpable marker. Musculoskeletal: No acute osseous pathology. Lymph nodes: Multiple nonenlarged lymph nodes are seen along both anterior chains of the neck. Vascular structures: Visualized major arteries are patent without evidence of aneurysm. Thoracic Inlet/airway: Airway is patent. Apical scarring bilaterally left greater than right. Mild pa raseptal emphysema changes. Soft tissues/Thyroid: Thyroid and remainder of the soft tissues are unremarkable. Other: none. IMPRESSION Palpable marker without definitive correlate for palpable abnormality. There is a 3 mm soft tissue de nsity likely representing lymph node within immediate deep subcutaneous tissues. No evidence for mass or adenopathy.
--- NOTE | 2022-09-19 09:02 | MM ---
Reason for Exam: Screening (asymptomatic). Last mammogram was performed 1 year(s) and 9 month(s) ago. Patient History: Menarche at age 10. First Full-Term at age 24. Postmenopausal. Mother had breast cancer, age 72. Risk Values: Adri 5 year model risk: 3.7%. NCI Lifetime model risk: 11.6%. Prior Study Comparison: 10/30/2019 Bilateral MG screening mammo w CAD - 2, Unknown. 12/24/2020 Bilateral MG screening mammo w CAD - 2, Unknown. Tissue Density: The breast tissue is heterogeneously dense. This may lower the sensitivity of mammography. Findings: Analyzed By CAD. There is no suspicious group of microcalcifications or new suspicious mass in either breast. Benign calcifications within both breasts. Overall Assessment: Benign, BI-RAD 2 Management: Screening Mammogram of both breasts in 1 year. A clinical breast exam by your physician is recommended on an annual basis and results should be correlated with mammographic findings. Electronically signed and approved by: Travis Booker D.O.
== END | disposition home or self-care (01) ==
LOC: RADMAMWWP 15:16
PROVIDERS: ATTEND Internal Medicine
DX: Z12.31 Encounter for screening mammogram for malignant neoplasm of breast (principal); R59.0 Localized enlarged lymph nodes; Z78.0 Asymptomatic menopausal state; Z80.3 Family history of malignant neoplasm of breast
CPT/HCPCS: 77067; 77063; 70491; Q9967

== ENCOUNTER → 2023-09-14 | Outpatient (CLI) | payer MEDICARE, BC ==
--- NOTE | 2023-09-14 18:16 | US ---
EXAMINATION TYPE: US kidneys/renal and bladder DATE OF EXAM: 09/14/2023 COMPARISON: NONE CLINICAL INDICATION: Female, 68 years old with history of R10.9 UNSPECIFIED ABDOMINAL PAIN; pain EXAM MEASUREMENTS: Right Kidney: 10.5 x 4.8 x 4.9 cm Left Kidney: 12.6 x 4.5 x 3.2 cm Right Kidney: No hydronephrosis or masses seen Left Kidney: No hydronephrosis or masses seen Bladder: wnl Bilateral Jets seen: Yes Incidental echogenic appearance to the hepatic parenchyma. IMPRESSION: No hydronephrosis. Incidental hepatic steatosis. Appropriate clinical management advised.
== END | disposition home or self-care (01) ==
LOC: RADUSWWP 12:09
PROVIDERS: ATTEND Internal Medicine
DX: K76.0 Fatty (change of) liver, not elsewhere classified (principal)
CPT/HCPCS: 76770

== ENCOUNTER → 2023-10-19 | Outpatient (CLI) | payer MEDICARE, BC ==
--- NOTE | 2023-10-20 09:47 | MM ---
Reason for Exam: Screening (asymptomatic). Last mammogram was performed 1 year(s) and 1 month(s) ago. Patient History: Menarche at age 10. First Full-Term at age 24. Postmenopausal. Mother had breast cancer, age 72. Risk Values: Adri 5 year model risk: 3.7%. NCI Lifetime model risk: 11.1%. Prior Study Comparison: 10/30/2019 Bilateral MG screening mammo w CAD - 2, Unknown. 12/24/2020 Bilateral MG screening mammo w CAD - 2, Unknown. 09/16/2022 Bilateral MG 3D screening mammo w/cad, [facility]. Tissue Density: The breast tissue is heterogeneously dense. This may lower the sensitivity of mammography. Findings: Analyzed By CAD. There is no suspicious group of microcalcifications or new suspicious mass in either breast. Benign-appearing calcifications. Stable benign appearing 2 mm chronic nodularity in the left axilla likely related to tiny lymph node.. Overall Assessment: Benign, BI-RAD 2 Management: Screening Mammogram of both breasts in 1 year. . Patient should continue monthly self-breast exams. A clinical breast exam by your physician is recommended on an annual basis. This exam should not preclude additional follow-up of suspicious palpable abnormalities. Note on Adri scores and lifetime risk: 1. A Adri score greater than 3% is considered moderate risk. If this is the case, consider specialist referral to assess eligibility for a risk reducing agent. 2. If overall lifetime risk for the development of breast cancer is 20% or higher, the patient may qualify for future screening with alternating mammogram and breast MRI. Electronically signed and approved by: Segundo Rudd M.D. Radiologis
== END | disposition home or self-care (01) ==
LOC: RADMAMWWP 10:18
PROVIDERS: ATTEND Internal Medicine
DX: Z12.31 Encounter for screening mammogram for malignant neoplasm of breast (principal); Z80.3 Family history of malignant neoplasm of breast; Z78.0 Asymptomatic menopausal state
CPT/HCPCS: 77063; 77067

== ENCOUNTER → 2024-12-31 | Outpatient (CLI) | payer MEDICARE, BC ==
--- NOTE | 2024-12-31 16:19 | XR ---
EXAMINATION TYPE: XR chest 2V DATE OF EXAM: 12/31/2024 4:16 PM COMPARISON: Chest radiographs from 09/06/2016 TECHNIQUE: XR chest 2V Frontal and lateral views of the chest. CLINICAL INDICATION:Female, 69 years old with history of R06.00; FINDINGS: Lungs/Pleura: There is no evidence of pleural effusion, focal consolidation, or pneumothorax. Pulmonary vascularity: Unremarkable. Heart/mediastinum: Cardiomediastinal silhouette is unremarkable. Musculoskeletal: Multiple level degenerative disc disease changes seen throughout the spine. IMPRESSION: No acute cardiopulmonary disease/process. [facility], , 12/31/2024 4:17 PM
--- NOTE | 2025-01-01 07:24 | BD ---
EXAMINATION TYPE: Axial Bone Density DATE OF EXAM: 12/31/2024 CLINICAL HISTORY: 69 years old Female. ICD-10 CODE: N95.1 M85.88 , Additional History: Height: 5 ft 4 1/2 in Weight: 179 FRAX RISK QUESTIONS: Alcohol (3 or more units per day): no Family History (Parent hip fracture): no Glucocorticoids (More than 3mos): no (Ex: prednisone, prednisolone, methylprednisolone, dexamethasone, and hydrocortisone). History of Fracture in Adulthood: no Secondary Osteoporosis: 1. Type 1 Diabetes: no 2. Hyperthyroidism: no 3. Menopause before 45: no 4. Malnutrition: no 5. Chronic liver disease: no Rheumatoid Arthritis: no Current Tobacco Use: no RISK FACTORS HISTORY OF: Surgery to Spine/Hip(right/left)/Wrist (right/left): lt hip replacement 2023/ right wrist bone on jeramy ne tendon replaced bone MEDICATIONS: Thyroid Medications: yes Which medication: levothyroxine How Long: since 1988 Osteoporosis Medications: none EXAM MEASUREMENTS: Bone mineral densitometry was performed using the [employer] System. Bone mineral density as measured about the Lumbar spine is: ----- L1-L4(G/cm2): 1.214 T Score Values are as follows: ----- L1: -0.2 ----- L2: -0.2 ----- L3: 0.3 ----- L4: 0.9 ----- L1-L4: 0.3 Z Score Values are as follows: ----- L1: 1.0 ----- L2: 0.9 ----- L3: 1.4 ----- L4: 2.1 ----- L1-L4: 1.4 Bone mineral density has: decreased -2.8 % since study of: 2001 Bone mineral density about the R hip (g/cm2): 0.891 T Score values are as follows: -----R Neck: -1.1 -----R Total: -0.7 Z Score values are as follows: -----R Neck: 0.3 -----R Total: 0.4 Bone mineral density has: decreased -18.1 % since study of: 2001 FRAX%s: The graph provided illustrates a 8.7 % chance for a major osteoporotic fx and a 0.9% chance f or the hips probability for fx in 10 years time. IMPRESSION: Osteopenia (T Score between -2.5 and -1). There is slightly increased risk of fracture and the patient may be considered for treatment. Re-Screen 2-5 years. NOTE: T-SCORE=SD OF THE YOUNG ADULT MEAN. [facility], , 01/01/2025 7:21 AM
--- NOTE | 2025-01-01 07:38 | MM ---
Reason for Exam: Screening (asymptomatic). Last mammogram was performed 1 year(s) and 3 month(s) ago. Patient History: Menarche at age 10. First Full-Term at age 24. Postmenopausal. Mother had breast cancer, age 72. Risk Values: Adri 5 year model risk: 3.7%. NCI Lifetime model risk: 10.6%. Prior Study Comparison: 12/24/2020 Bilateral MG screening mammo w CAD - 2, Unknown. 09/16/2022 Bilateral MG 3D screening mammo w/cad, [facility]. 10/19/2023 Bilateral MG 3D screening mammo w/cad, [facility]. Tissue Density: The breasts are heterogeneously dense, which may obscure small masses. Findings: Analyzed By CAD. Right breast: There is no suspicious group of microcalcifications or new suspicious mass. Left breast: There is no suspicious group of microcalcifications or new suspicious mass. Overall Assessment: Negative, BI-RAD 1 Management: Screening Mammogram of both breasts in [address] [facility] will attempt to contact patient to return for supplemental views and ultrasound if indicated. Patient should continue monthly self-breast exams. A clinical breast exam by your physician is recommended on an annual basis. This exam should not preclude additional follow-up of suspicious palpable abnormalities. Note on Adri scores and lifetime risk: 1. A Adri score greater than 3% is considered moderate risk. If this is the case, consider specialist referral to assess eligibility for a risk reducing agent. 2. If overall lifetime risk for the development of breast cancer is 20% or higher, the patient may qualify for future screening with alternating mammogram and breast MRI. [facility], , 01/01/2025 7:35 AM. Electronically signed and approved by: Jean-Pierre Williamson DO
== END | disposition home or self-care (01) ==
LOC: RADBDWWP 15:33
PROVIDERS: ATTEND Internal Medicine
DX: Z12.31 Encounter for screening mammogram for malignant neoplasm of breast (principal); M85.88 Other specified disorders of bone density and structure, other site; R06.00 Dyspnea, unspecified; R92.333 Mammographic heterogeneous density, bilateral breasts; Z78.0 Asymptomatic menopausal state; Z80.3 Family history of malignant neoplasm of breast; M85.89 Other specified disorders of bone density and structure, multiple sites
CPT/HCPCS: 71046; 77063; 77067; 77080